=== PATIENT | female | born 2000 | race Two or more races ===

== ENCOUNTER 2021-04-02 15:41 | Emergency (ER) | payer SELFPAY ==
--- NOTE | 2021-04-02 16:18 | EDM.PDOC ---
ED HPI GENERAL MEDICAL PROBLEM - General Chief Complaint: Abdominal Pain Stated Complaint: abdominal pain Time Seen by Provider: 04/02/21 16:02 Source of Information: Reports: Patient, Family History Limitations: Reports: Language Barrier - History of Present Illness INITIAL COMMENTS - FREE TEXT/NARRATIVE: Pooja is a 20 year old female who presents for ongoing lower quadrant pain. Has had since this last Sunday. Was seen by Jb Santizo for cramping and irregular menstrual cycle. States cycle was not due for 2 weeks but started bleeding on Sunday and has persisted since. Work up including labs and a pelvic ultrasound done that day were essentially normal. Had a mildly elevated CRP but ultrasound and other labs normal. Admits to occasional nausea. No vomiting. No fever. Denies changes in bowel habits. No burning with urination. does not speak Kazakh but has medical officer with her. Onset: Gradual Duration: Day(s):, Constant Location: Reports: Abdomen Quality: Reports: Ache Severity: Moderate Improves with: Reports: None Associated Symptoms: Reports: Nausea/Vomiting. Denies: Confusion, Chest Pain, Cough, Fever/Chills, Loss of Appetite, Shortness of Breath Treatments CATTERY OPERATOR: Reports: Other (see below) Other Treatments CATTERY OPERATOR: FRIEND STATES SHE WAS HERE LAST WEEK FOR THIS AND THEY COULDN'T FIND ANYTHI Abdomen Pain Score (Numeric/FACES): 8 - Related Data Allergies Allergy/AdvReac Type Severity Reaction Status Date / Time No Known Allergies Allergy Verified 04/02/21 15:42 Home Meds: Home Meds . [No Known Home Meds] 04/02/21 [History] Past Medical History - Past Health History Medical/Surgical History: Denies Medical/Surgical History Social & Family History - Tobacco Use Tobacco Use Status *Q: Never Tobacco User ED ROS GENERAL - Review of Systems Review Of Systems: See Below Constitutional: Denies: Fever, Chills, Malaise, Weakness, Fatigue, Decreased Appetite HEENT: Denies: Ear Pain, Rhinitis, Sinus Problem, Throat Pain Respiratory: Denies: Shortness of Breath, Cough Cardiovascular: Denies: Chest Pain, Edema, Lightheadedness Endocrine: Denies: Fatigue GI/Abdominal: Reports: Abdominal Pain, Nausea. Denies: Constipation, Diarrhea, Vomiting : Reports: Irregular Menses. Denies: Dysuria, Flank Pain Musculoskeletal: Reports: No Symptoms Skin: Reports: No Symptoms Neurological: Reports: No Symptoms ED EXAM, GI/ABD - Physical Exam Exam: See Below Exam Limited By: Language Barrier General Appearance: Alert, WD/WN, No Apparent Distress Ears: Normal External Exam, Normal TMs Nose: Normal Inspection, Normal Mucosa, No Blood Throat/Mouth: Normal Inspection, Normal Oropharynx Head: Normocephalic Neck: Normal Inspection, Supple, Non-Tender Respiratory/Chest: No Respiratory Distress, Lungs Clear, Normal Breath Sounds Cardiovascular: Regular Rate, Rhythm GI/Abdominal Exam: Normal Bowel Sounds, Soft, Tender (lower quadrants bilaterally) Extremities: Normal Inspection, No Pedal Edema Neurological: Alert, Oriented Skin Exam: Warm, Dry Course - Vital Signs Last Recorded V/S: Last Vital Signs Temp 98.7 F 04/02/21 15:42 Pulse 86 04/02/21 15:42 Resp 20 04/02/21 15:42 BP 109/65 04/02/21 15:42 Pulse Ox 100 04/02/21 15:42 - Orders/Labs/Meds Orders: Active Orders 24 hr Category Date Time Status Abdomen Pelvis w Cont [CT] Routine Exams 04/02/21 Taken Labs: Laboratory Tests 04/02/21 04/02/21 04/02/21 Range/Units 16:05 16:05 16:26 WBC 9.7 (4.0-11.0) 10^3/uL RBC 4.16 (4.00-5.50) x10^6/uL Hgb 12.0 (12.0-16.0) g/dL Hct 35.5 L (37.0-47.0) % MCV 85.3 (83.0-97.0) fL MCH 28.8 (27.0-32.0) pg MCHC 33.8 (32.0-36.0) g/dL RDW Coeff of Werner 11.9 (11.0-15.0) % Plt Count 321 (150-400) 10^3/uL Immature Gran % (Auto) 0.2 (0.0-4.9) % Neut % (Auto) 78.5 H (41-71) % Lymph % (Auto) 15.2 L (24-44) % Iron % (Auto) 5.0 (0-10) % Eos % (Auto) 1.0 (0-6) % Baso % (Auto) 0.1 (0-1) % Neut # (Auto) 7.64 (1.80-8.00) x10^3/uL Lymph # (Auto) 1.48 (0.60-5.00) 10^3/uL Iron # (Auto) 0.49 (0.00-1.50) 10^3/uL Eos # (Auto) 0.10 (0.00-1.50) 10^3/uL Baso # (Auto) 0.01 (0.00-0.50) 10^3/uL Immature Gran # (Auto) 0.02 (0.00-0.49) 10^3/uL Sodium 138 (136-145) mEq/L Potassium 3.8 (3.5-5.0) mEq/L Chloride 101 (98-106) mEq/L Carbon Dioxide 28 (21-32) mmol/L BUN 11 (7-18) mg/dL Creatinine 0.7 (0.6-1.0) mg/dL Est Cr Clr Drug Dosing 95.13 mL/min Estimated GFR (MDRD) > 60 (>=60) mL/min Glucose 94 (75-99) mg/dL Calcium 8.9 (8.4-10.1) mg/dL Total Bilirubin 0.3 (0.0-1.0) mg/dL AST 20 (15-37) U/L ALT 34 (12-78) U/L Alkaline Phosphatase 93 (46-116) U/L C-Reactive Protein 17.8 H (0.2-0.8) mg/dL Total Protein 8.2 (6.4-8.2) g/dL Albumin 3.6 (3.4-5.0) g/dL Amylase 48 (25-115) U/L Lipase 58 L (73-393) U/L Urine Color Yellow (YELLOW) Urine Appearance Slightly cloudy (CLEAR) Urine pH 5.5 (4.5-8.0) Ur Specific [place] 1.025 H (1.003-1.020) Urine Protein Negative (NEGATIVE) mg/dL Urine Glucose (UA) Negative (NEGATIVE) mg/dL Urine Ketones Negative (NEGATIVE) mg/dL Urine Occult Blood Large H (NEGATIVE) Urine Nitrite Negative (NEGATIVE) Urine Bilirubin Negative (NEGATIVE) Urine Urobilinogen 0.2 (0.2-1.0) EU/dL Ur Leukocyte Esterase Negative (NEGATIVE) Urine RBC >100 H (0-5) /HPF Urine WBC Not seen (0-5) /HPF Ur Epithelial Cells Few H (NOT SEEN) /HPF Urine HCG, Qual 04/02/21 Range/Units 16:26 WBC (4.0-11.0) 10^3/uL RBC (4.00-5.50) x10^6/uL Hgb (12.0-16.0) g/dL Hct (37.0-47.0) % MCV (83.0-97.0) fL MCH (27.0-32.0) pg MCHC (32.0-36.0) g/dL RDW Coeff of Werner (11.0-15.0) % Plt Count (150-400) 10^3/uL Immature Gran % (Auto) (0.0-4.9) % Neut % (Auto) (41-71) % Lymph % (Auto) (24-44) % Iron % (Auto) (0-10) % Eos % (Auto) (0-6) % Baso % (Auto) (0-1) % Neut # (Auto) (1.80-8.00) x10^3/uL Lymph # (Auto) (0.60-5.00) 10^3/uL Iron # (Auto) (0.00-1.50) 10^3/uL Eos # (Auto) (0.00-1.50) 10^3/uL Baso # (Auto) (0.00-0.50) 10^3/uL Immature Gran # (Auto) (0.00-0.49) 10^3/uL Sodium (136-145) mEq/L Potassium (3.5-5.0) mEq/L Chloride (98-106) mEq/L Carbon Dioxide (21-32) mmol/L BUN (7-18) mg/dL Creatinine (0.6-1.0) mg/dL Est Cr Clr Drug Dosing mL/min Estimated GFR (MDRD) (>=60) mL/min Glucose (75-99) mg/dL Calcium (8.4-10.1) mg/dL Total Bilirubin (0.0-1.0) mg/dL AST (15-37) U/L ALT (12-78) U/L Alkaline Phosphatase (46-116) U/L C-Reactive Protein (0.2-0.8) mg/dL Total Protein (6.4-8.2) g/dL Albumin (3.4-5.0) g/dL Amylase (25-115) U/L Lipase (73-393) U/L Urine Color (YELLOW) Urine Appearance (CLEAR) Urine pH (4.5-8.0) Ur Specific [place] (1.003-1.020) Urine Protein (NEGATIVE) mg/dL Urine Glucose (UA) (NEGATIVE) mg/dL Urine Ketones (NEGATIVE) mg/dL Urine Occult Blood (NEGATIVE) Urine Nitrite (NEGATIVE) Urine Bilirubin (NEGATIVE) Urine Urobilinogen (0.2-1.0) EU/dL Ur Leukocyte Esterase (NEGATIVE) Urine RBC (0-5) /HPF Urine WBC (0-5) /HPF Ur Epithelial Cells (NOT SEEN) /HPF Urine HCG, Qual Negative Meds: Medications Discontinued Medications Generic Name Dose Route Start Last Admin Trade Name Elicia PRN Reason Stop Dose Admin Iopamidol 80 ml 04/02/21 17:23 04/02/21 17:31 Iopamidol 755 Mg/Ml 100 Ml Bottle IVPUSH 04/02/21 17:24 80 ml ONETIME ONE Administration - Re-Assessments/Exams Free Text/Narrative Re-Assessment/Exam: 04/02/21 Labs unremarkable except CRP has increased since recent evaluation to 17.8. Will obtain CT scan of abdomen as ultrasound did not reveal source of persisting pain on Sunday. 04/02/21 18:31 CT report received. Appendix normal. Does appear to have an enlarged left ovary and a tortuous fallopian tube. No sign of abscess. Did call [place] and discuss pelvic ultrasound capability with Dr. Zhou. Did advise to have her transferred to their facility, obtain ultrasound and treat further at that point. Did discuss with patient and friend. Are willing to drive her to [place] for further work up that is unobtainable here as no ultrasound capability here tonight. Risks and benefits of private vehicle transfer discussed with friend and to patient. Advised of risk of transfer to include worsening status, pain, vehicle crash and potential . Benefits of transfer include testing to rule out surgical cause of pain. Risks of non transfer include worsening status, pain and possible . Benefits of non transfer include care close to home. Are willing to transport patient. Departure - Departure Time of Disposition: 18:34 Disposition: DC/Tfer to Acute Hospital 02 Condition: Fair Clinical Impression: Abdominal pain, Enlarged ovary, Fallopian tube disorder - Discharge Information *PRESCRIPTION DRUG MONITORING PROGRAM REVIEWED*: No *COPY OF PRESCRIPTION DRUG MONITORING REPORT IN PATIENT DINO: No Instructions: Abdominal Pain, Adult, [id number] Referrals: PCP,None [Primary Care Provider] - Forms: ED Department Discharge Additional Instructions: Transfer by private car to [facility] Sepsis Event Note (ED) - Evaluation Sepsis Screening Result: No Definite Risk - Focused Exam Vital Signs: Vital Signs Temp Pulse Resp BP Pulse Ox 04/02/21 15:42 98.7 F 86 20 109/65 100 - My Orders Last 24 Hours: My Active Orders 04/02/21 Abdomen Pelvis w Cont [CT] Routine - Assessment/Plan Last 24 Hours: My Active Orders 04/02/21 Abdomen Pelvis w Cont [CT] Routine
[2021-04-02 16:20] LABS: CHLORIDE,CL 101 mEq/L (98-106); SODIUM,NA 138 mEq/L (136-145)
[2021-04-02] MEDS: Iopamidol 755 Mg/ML 100 ML Bottle IVPUSH ONE (17:31)
== END 2021-04-02 18:54 | disposition critical access hospital (66) ==
LOC: CC.ED 15:41
DX: N83.8 Other noninflammatory disorders of ovary, fallopian tube and broad ligament (principal)
CPT/HCPCS: 36415; 74177; 80053; 81001; 81025; 82150; 83690; 85025; 86140; 99284; Q9967